=== PATIENT | female | born 1990 | race Hispanic/Latino ===

== ENCOUNTER 2017-07-30 16:44 | Emergency (ER) | payer BC ==
[2017-07-30 17:00] VITALS: BP 133/87; PULSE 78; RESP 16; TEMP 98; O2SAT 99
[2017-07-30] MEDS ORDERED: Sodium Chloride 0.9% 1,000 ML IV STA (17:23)
--- NOTE | 2017-07-30 17:57 | ED PDOC ---
HPI: Abdomen Time Seen by Provider: 07/30/17 17:22 Chief Complaint (Nursing): Abdominal Pain Chief Complaint (Provider): abdominal pain History Per: Patient History/Exam Limitations: no limitations Additional Complaint(s): 26yo F in Ed for eval of abd pain/dizziness/difficulty with concentration x1 day up[on waking up this AM-states that she noted tingling sensation to her hand snad feet-feels she be dehydrated but unable to keep anything down. admits to pain to the left lower abd an flank area without hematuira, dysuria or vaginal d/c. admits to hx of abdominal pain and blanca been seen by a GI for further evaluation,. pmhs : asthma, fibromyglaia . Abnormal Vaginal Bleeding: No Past Medical History Vital Signs: Last Vital Signs Temp 98 F 07/30/17 16:56 Pulse 78 07/30/17 16:56 Resp 16 07/30/17 16:56 BP 133/87 07/30/17 16:56 Pulse Ox 99 07/30/17 17:57 - Medical History PMH: Asthma, Fibromyalgia, Seizures - Allergies Allergies/Adverse Reactions: Allergies Allergy/AdvReac Type Severity Reaction Status Date / Time cephalexin [From Keflex] Allergy RASH Verified 07/30/17 16:54 dicyclomine [From Bentyl] Allergy ANAPHYLAXIS Verified 07/30/17 16:54 - Laboratory Results Result Diagrams: 07/30/17 17:58 07/30/17 17:58 - ECG O2 Sat by Pulse Oximetry: 99 Medical Decision Making Medical Decision Making: CT scan: IMPRESSION: Moderate amount of fluid in the pelvis suggesting recent cyst rupture; no renal or ureteral stones or hydronephrosis; possible fatty liver; nonvisualization of the appendix, but no pericecal inflammatory change Additional findings as described above. Thank you for allowing us to participate in the care of your patient. Dictated and Authenticated by: Glo Mendez MD 07/30/2017 8:03 PM Eastern Time ([place] & [place]) Pt will get US trans/pelvis. Disposition - Disposition Condition: STABLE Forms: [employer] (Lithuanian)
[2017-07-30 18:05] LABS: BASO % 0.7 % (0.0-2.0); EOS # 0.1 K/uL (0.0-0.7); EOS % 2.2 % (0.0-4.0); LYMPH # 1.8 K/uL (1.0-4.3); LYMPH % 43.1 % (20.0-40.0); MEAN CELL VOLUME 97.3 fl (81.0-99.0); MEAN CORPUSCULAR HEMOGLOBIN 31.8 pg (27.0-31.0); MEAN CORPUSCULAR HGB CONC 32.6 g/dL (33.0-37.0); MONO # 0.2 K/uL (0.0-0.8); MONO % 5.5 % (0.0-10.0); NEUT # 2.1 K/uL (1.8-7.0); NEUT % 48.5 % (50.0-75.0); NRBC % 0.1 % (0.0-0.0); RED CELL DISTRIBUTION WIDTH 13.3 % (11.5-14.5); WHITE BLOOD COUNT 4.2 K/uL (4.8-10.8)
[2017-07-30 18:33] LABS: ALB/GLOB RATIO 1.4 (1.0-2.1); ALKALINE PHOSPHATASE 36 U/L (38-126); ALT/SGPT 32 U/L (9-52); AST/SGOT 25 U/L (14-36); BILIRUBIN,TOTAL 0.6 mg/dl (0.2-1.3); BLOOD UREA NITROGEN 8 mg/dl (7-17); CALCIUM 8.8 mg/dL (8.4-10.2); CARBON DIOXIDE 27 mmol/L (22-30); CHLORIDE 106 mmol/L (98-107); GFR AFRICAN-AMERICAN > 60; GLUCOSE,RANDOM 76 mg/dL (65-105); POTASSIUM 4.3 MMOL/L (3.6-5.0); SODIUM 140 mmol/l (132-148); TOTAL PROTEIN 6.9 G/DL (6.3-8.2)
[2017-07-30 18:45] LABS: RBC URINE 2 /hpf (0-3); URINE BILIRUBIN NEGATIVE (NEGATIVE); URINE BLOOD NEGATIVE (NEGATIVE); URINE COLOR YELLOW (YELLOW); URINE GLUCOSE (UA) NEG (Normal); URINE KETONE TRACE mg/dL (NEGATIVE); URINE LEUKOCYTE ESTERASE NEG Leu/uL (Negative); URINE PROTEIN NEGATIVE (NEGATIVE); URINE UROBILINOGEN 0.2-1.0 mg/dL (0.2-1.0); WBC URINE 1 /hpf (0-5)
[2017-07-30] MEDS ORDERED: Iohexol 300 100 ML IJ ONE (18:55)
[2017-07-30] MEDS ORDERED: Sodium Chloride 0.9% 50 ML IV ONE (18:55)
[2017-07-30] MEDS ORDERED: Sodium Chloride 0.9% 500 ML IV STA (21:46)
--- NOTE | 2017-07-30 22:22 | ED PDOC ---
- Laboratory Results Result Diagrams: 07/30/17 17:58 07/30/17 17:58 - ECG O2 Sat by Pulse Oximetry: 99 - Progress ED Course And Treament: Case endorsed to science writer from [facility] pending labs, imaging, re-eval EXAM: US Pelvis Complete CLINICAL HISTORY: 26 years old, female; Pain; Pelvic pain; Additional info: Free fluid in pelvis with pain; LMP one to 2 years ago, irregular cycles TECHNIQUE: Real-time pelvic ultrasound (complete) with image documentation. COMPARISON: There are no prior studies for comparison. FINDINGS: Uterus: Uterus measures approximately 5.8 x 2.5 x 3.4 cm. Endometrium measures approximately 3 mm in width. Right ovary: Right ovary measures approximately 2.9 x 1.2 x 2.2 cm. There are multiple small follicles. There is intraovarian blood flow. Left ovary: Left ovary measures approximately 2.2 x 0.9 x 1.7 cm. There are multiple small follicles. There is intraovarian blood flow. Free fluid: Fluid in the cul-de-sac and both adnexa, right greater than left. IMPRESSION: Free fluid suggests recent cyst rupture, no torsion EXAM: US Pelvis, Transvaginal EXAM DATE/TIME: 07/30/2017 8:10 PM CLINICAL HISTORY: 26 years old, female; Pain; Pelvic pain; Additional info: Free fluid in pelvis with pain TECHNIQUE: Real-time transvaginal pelvic ultrasound (complete) with image documentation. Transvaginal imaging was used for better evaluation of the endometrium and adnexa. COMPARISON: CT - ABD PELVIS IV CONTRA 2017-07-30 19:10 FINDINGS: Uterus: Uterus measures approximately 4.6 x 2.3 x cm. Endometrium measures approximately 2.6 mm in width. Ovaries: Right ovary measures approximately 3 x 1.2 x 2.6 cm. Left ovary measures approximately 1.8 x 1 x 1.7 cm. There are multiple small follicles. There is intraovarian blood flow. Free fluid: There is moderately large amount of fluid in the cul-de-sac and adnexa. IMPRESSION: Moderately large amount of fluid in the cul-de-sac and adnexa suggest recent cyst rupture, no torsion On re-eval, patient resting comfortably. Patient educated on findings, discharged with instructions to follow up [facility] in 2 -3 days. Patient requesting refill on Flexeril for her Fibromyalgia. Return to ED for worsening/concerning symptoms. Disposition - Clinical Impression Clinical Impression: Abdominal pain, Ovarian cyst rupture - POA Present On Arrival: None - Disposition Referrals: Saleem Eddy DO [Staff Provider] - Disposition: Routine/Home Disposition Time: 22:21 Condition: IMPROVED Prescriptions: Cyclobenzaprine [Cyclobenzaprine HCl] 10 mg PO BID PRN #14 tab PRN Reason: Muscle Spasm Instructions: Ovarian Cyst (ED), Abdominal Pain (ED) Forms: [employer] (Kinyarwanda)
--- NOTE | 2017-07-31 09:06 | CT ---
PROCEDURE: CT Abdomen and Pelvis with contrast HISTORY: left flank pain COMPARISON: None. TECHNIQUE: Contrast dose: Radiation dose: Total exam DLP = mGy-cm. This CT exam was performed using one or more of the following dose reduction techniques: Automated exposure control, adjustment of the mA and/or kV according to patient size, and/or use of iterative reconstruction technique. FINDINGS: LOWER THORAX: Unremarkable. LIVER: Mild periportal edema without mass or biliary dilatation. GALLBLADDER AND BILE DUCTS: Unremarkable. PANCREAS: Unremarkable. No gross lesion or ductal dilatation. SPLEEN: Unremarkable. ADRENALS: Unremarkable. No mass. KIDNEYS AND URETERS: Unremarkable. No hydronephrosis. No solid mass. VASCULATURE: Unremarkable. No aortic aneurysm. BOWEL: Unremarkable. No obstruction. No gross mural thickening. APPENDIX: Normal appendix. PERITONEUM: Unremarkable. No free fluid. No free air. LYMPH NODES: Unremarkable. No enlarged lymph nodes. BLADDER: Unremarkable. REPRODUCTIVE: Unremarkable. BONES: No acute fracture. OTHER FINDINGS: Moderate amount of free fluid in the pelvis possibly representing recent ovarian cyst rupture. IMPRESSION: Moderate amount of free fluid in the pelvis possibly representing recent ovarian cyst rupture.Mild periportal edema without mass or biliary dilatation. Correlate with liver function studies.
--- NOTE | 2017-07-31 10:20 | US ---
PROCEDURE: HISTORY: free fluid in pelvis with pain COMPARISON: None TECHNIQUE: FINDINGS: The uterus measures 5.8 x 2.5 x 3.4 centimeters. The endometrium measures 3 millimeters. The right ovary measures 2.9 x 2.2 centimeters. The left ovary measures 2.2 x 1.7 centimeters. There is free fluid in the pelvis. IMPRESSION: Free fluid in the pelvis possibly related to recent ovarian cyst rupture.
== END 2017-07-30 22:31 | disposition home or self-care (01) ==
LOC: H.ER 16:44
DX: R10.32 Left lower quadrant pain (principal); N83.209 Unspecified ovarian cyst, unspecified side; J45.909 Unspecified asthma, uncomplicated
CPT/HCPCS: 74177; 76830; 76856; 80053; 81003; 81025; 82948; 83735; 85025; 87804; 96374; 96375; 99284; J1885; J2405; J7040; Q9967

== ENCOUNTER 2017-08-03 16:43 | Emergency (ER) | payer BC ==
[2017-08-03 17:09] VITALS: BP 129/84; PULSE 95; RESP 20; TEMP 98.2; O2SAT 98
[2017-08-03] MEDS ORDERED: Sodium Chloride 0.9% 1,000 ML IV STA (17:50)
[2017-08-03 18:21] LABS: BASO % 0.8 % (0.0-2.0); EOS # 0.1 K/uL (0.0-0.7); HEMATOCRIT 43.2 % (34.0-47.0); LYMPH # 1.6 K/uL (1.0-4.3); LYMPH % 37.2 % (20.0-40.0); MEAN CORPUSCULAR HEMOGLOBIN 31.8 pg (27.0-31.0); MEAN CORPUSCULAR HGB CONC 32.7 g/dL (33.0-37.0); MEAN PLATELET VOLUME 7.3 fl (7.2-11.7); MONO # 0.2 K/uL (0.0-0.8); MONO % 5.6 % (0.0-10.0); NEUT # 2.4 K/uL (1.8-7.0); NEUT % 54.4 % (50.0-75.0); NRBC % 0.1 % (0.0-0.0); RED CELL DISTRIBUTION WIDTH 13.1 % (11.5-14.5); WHITE BLOOD COUNT 4.3 K/uL (4.8-10.8)
[2017-08-03 18:33] LABS: ALB/GLOB RATIO 1.4 (1.0-2.1); ALKALINE PHOSPHATASE 45 U/L (38-126); ALT/SGPT 31 U/L (9-52); AST/SGOT 25 U/L (14-36); BILIRUBIN,TOTAL 0.9 mg/dl (0.2-1.3); BLOOD UREA NITROGEN 11 mg/dl (7-17); CALCIUM 9.4 mg/dL (8.4-10.2); CARBON DIOXIDE 27 mmol/L (22-30); CHLORIDE 103 mmol/L (98-107); GFR AFRICAN-AMERICAN > 60; GLUCOSE,RANDOM 71 mg/dL (65-105); LIPASE 59 U/L (23-300); POTASSIUM 4.8 MMOL/L (3.6-5.0); SODIUM 141 mmol/l (132-148); TOTAL PROTEIN 8.1 G/DL (6.3-8.2)
[2017-08-03] MEDS ORDERED: Iohexol 240 (50 ml) PO ONE (18:43)
--- NOTE | 2017-08-03 18:45 | ED PDOC ---
HPI: Abdomen Time Seen by Provider: 08/03/17 17:34 Chief Complaint (Nursing): Abdominal Pain Chief Complaint (Provider): Abdominal Pain History Per: Patient History/Exam Limitations: no limitations Onset/Duration Of Symptoms: Days (x2 days) Current Symptoms Are (Timing): Still Present Additional Complaint(s): 26 y/o female with past medical history of IBS and fibromyalgia presents to the ED complaining of abdominal pain since last night. Pain is constant and is in the umbilical region radiating to left lower quadrant. She notes excessive nausea and burping and is unable able to eat due to nausea. Patient was in the ED 4 days ago for similar reasons. Patient didnt take anything for pain and will be seeing cae engineer for endoscopy. Denies fever or any further medical complaints. Past Medical History Reviewed: Historical Data, Nursing Documentation, Vital Signs Vital Signs: Last Vital Signs Temp 98.2 F 08/03/17 17:05 Pulse 95 H 08/03/17 17:05 Resp 20 08/03/17 17:05 BP 129/84 08/03/17 17:05 Pulse Ox 98 08/03/17 17:05 - Medical History PMH: Asthma, Fibromyalgia, Seizures - Surgical History Surgical History: No Surg Hx - Family History Family History: States: Unknown Family Hx - Social History Current smoker - smoking cessation education provided: No Alcohol: None Drugs: Other (Marijuana) - Home Medications Home Medications: Ambulatory Orders Medication Instructions Recorded Cyclobenzaprine [Cyclobenzaprine 10 mg PO BID PRN #14 tab 07/30/17 HCl] - Allergies Allergies/Adverse Reactions: Allergies Allergy/AdvReac Type Severity Reaction Status Date / Time cephalexin [From Keflex] Allergy RASH Verified 07/30/17 16:54 dicyclomine [From Bentyl] Allergy ANAPHYLAXIS Verified 07/30/17 16:54 Review of Systems ROS Statement: Except As Marked, All Systems Reviewed And Found Negative (As per HPI, otherwise negative) Constitutional: Negative for: Fever Gastrointestinal: Positive for: Nausea, Abdominal Pain Physical Exam - Reviewed Nursing Documentation Reviewed: Yes Vital Signs Reviewed: Yes - Physical Exam Appears: Positive for: Non-toxic, No Acute Distress Head Exam: Positive for: ATRAUMATIC, NORMOCEPHALIC Skin: Positive for: Normal Color, Warm, Dry Eye Exam: Positive for: EOMI, Normal appearance, PERRL Neck: Positive for: Normal, Painless ROM, Supple Cardiovascular/Chest: Positive for: Regular Rate, Rhythm. Negative for: Murmur Respiratory: Positive for: Normal Breath Sounds. Negative for: Respiratory Distress Gastrointestinal/Abdominal: Positive for: Normal Exam, Soft (soft but diffused tenderness). Negative for: Tenderness Back: Positive for: Normal Inspection. Negative for: L CVA Tenderness, R CVA Tenderness, Vertebral Tenderness Extremity: Positive for: Normal ROM. Negative for: Pedal Edema, Deformity Neurologic/Psych: Positive for: Alert, Oriented (x3) - Laboratory Results Result Diagrams: 08/03/17 18:13 08/03/17 18:13 - ECG O2 Sat by Pulse Oximetry: 98 (RA) Pulse Ox Interpretation: Normal Medical Decision Making Medical Decision Making: Time: 18:43 Plan: CT Abdomen/Pelvis Urine dipstick Ppcid 20mg PO Iohexol 50ml PO Toradol 15mg IVP Reglan 10mg IVP Sodium chloride 1L, IV IV insertion Reevaluation Scribe Attestation: Documented by Nabil Dobosn acting as a scribe for Jesenia Nunes MD. Scribe Attestation: All medical record entries made by the Scribe were at my direction and personally dictated by me. I have reviewed the chart and agree that the record accurately reflects my personal performance of the history, physical exam, medical decision making, and the department Disposition - Disposition
[2017-08-03] MEDS ORDERED: Iohexol 240 (50 ml) ONE (18:46)
--- NOTE | 2017-08-03 19:39 | ED PDOC ---
- Laboratory Results Result Diagrams: 08/03/17 18:13 08/03/17 18:13 - ECG O2 Sat by Pulse Oximetry: 98 (RA) Medical Decision Making Medical Decision Making: Time: 19:00 Patient is signed over to me by Dr. Nunes pending CT and reevaluation. 1030PM: COMPARISON: CT - ABD PELVIS IV CONTRA 2017-07-30 19:10 FINDINGS: Lower thorax: <No significant pleural effusions.> ABDOMEN: Liver: Unremarkable. No mass. Gallbladder and bile ducts: Unremarkable. No calcified stones. No ductal dilation. Pancreas: Unremarkable. No ductal dilation. Spleen: Unremarkable. No splenomegaly. Adrenals: Left adrenal thickening. Kidneys and ureters: Mild to moderate right hydronephrosis. Stomach and bowel: Unremarkable. No dilated bowel loops. Appendix: No findings to suggest acute appendicitis. PELVIS: Bladder: Contracted, limits evaluation. Reproductive: Unremarkable as visualized. CHERYL BAL | Preliminary Radiology Report OPEN DEVELOPER OPERATOR (QA) DISCREPANCY? If there is a discrepancy between the preliminary and final interpretation, please notify [employer] via [email or web address]. If you do not have access to our QA portal, call our QA team at [phone] CONFIDENTIALITY STATEMENT This report is intended only for the use of the referring physician, and only in accordance with law, If you received this in error, call [phone] Page 2 of 2 ABDOMEN and PELVIS: Intraperitoneal space: Unremarkable. No free air. No drainable fluid collection. Bones/joints: No acute fracture. No dislocation. Soft tissues: Unremarkable. Vasculature: Unremarkable. No abdominal aortic aneurysm. Lymph nodes: Unremarkable. No enlarged lymph nodes. IMPRESSION: Mild to moderate right hydronephrosis. No findings to suggest acute appendicitis. Saw patient at bedside, states that morphine helped temporarily and asking for another dose. Pt. staes she has tried flexeril, carafate, PPI, zantac, simethicone as well as other stomache medications but they "make the pain worse ". Patient asking for stronger medications but I explained that opiates/ narcotics will slow down her GI tract. Explained dangers of opiate addiction, patient understands this and relates that she had a friend who suffered from a fatal drug overdose. Will give one more dose of morphine in ER, no opiate prescriptions will be prescribed at this time. Pt. states she has a GI appointment in 2 days but cannot recall the name of the physician. Will d/c home. Return precautions discussed. Scribe Attestation: Documented by Nabil Dobson acting as a scribe for Jah Staples MD. Scribe Attestation: All medical record entries made by the Scribe were at my direction and personally dictated by me. I have reviewed the chart and agree that the record accurately reflects my personal performance of the history, physical exam, medical decision making, and the department course for this patient. I have also personally directed, reviewed, and agree with the discharge instructions and disposition. Disposition - Clinical Impression Clinical Impression: Abdominal pain - POA Present On Arrival: None - Disposition Referrals: Omkar Vidales [Outside] Disposition: Routine/Home Disposition Time: 22:30 Condition: STABLE Instructions: Acute Abdominal Pain (ED), Gas and Bloating (ED) Forms: [employer] (Surinamese)
[2017-08-03] MEDS ORDERED: Morphine 4 MG/ML VIAL IVP STA (20:29)
[2017-08-03] MEDS ORDERED: Morphine 4 MG/ML VIAL ONE ×2 (20:33→22:50)
[2017-08-03] MEDS ORDERED: Sodium Chloride 0.9% 50 ML IV ONE (21:06)
[2017-08-03] MEDS ORDERED: Iohexol 300 100 ML IJ ONE (21:06)
[2017-08-03] MEDS ORDERED: Morphine 4 MG/ML VIAL IVP ONE (22:46)
--- NOTE | 2017-08-04 09:20 | CT ---
PROCEDURE: CT Abdomen and Pelvis with contrast HISTORY: abdominal pain COMPARISON: 07/30/2017 CT abdomen and pelvis. 07/30/2017 pelvic ultrasound Summary of findings on the comparison examination: Free fluid in the pelvis possibly related to recent ovarian cyst rupture TECHNIQUE: Contrast dose: 80 cc Omnipaque 300 Radiation dose: Total exam DLP = 178.75 mGy-cm. This CT exam was performed using one or more of the following dose reduction techniques: Automated exposure control, adjustment of the mA and/or kV according to patient size, and/or use of iterative reconstruction technique. FINDINGS: LOWER THORAX: Unremarkable. LIVER: Unremarkable. No gross lesion or ductal dilatation. GALLBLADDER AND BILE DUCTS: Unremarkable. PANCREAS: Unremarkable. No gross lesion or ductal dilatation. SPLEEN: Unremarkable. ADRENALS: Unremarkable. No mass. KIDNEYS AND URETERS: Unremarkable. No hydronephrosis. No solid mass. VASCULATURE: Unremarkable. No aortic aneurysm. BOWEL: Unremarkable. No obstruction. No gross mural thickening. APPENDIX: Normal appendix. PERITONEUM: Interval decrease in the amount of free fluid in the pelvis/cul-de-sac compared prior studies. Otherwise no interval change. No acute findings related to/accounting for the clinical presentation. Concordant results (preliminary interpretation) provided by [facility]. Procedure Completed: :30 Preliminary ([facility]) Report: Dictated and Authenticated: 22:00 Final Interpretation: 09:18 LYMPH NODES: Unremarkable. No enlarged lymph nodes. BLADDER: Unremarkable. REPRODUCTIVE: Unremarkable. BONES: No acute fracture. OTHER FINDINGS: None. IMPRESSION: Interval decrease in the amount of free fluid in the pelvis/cul-de-sac compared prior studies. Otherwise no interval change. No acute findings related to/accounting for the clinical presentation. Concordant results (preliminary interpretation) provided by [facility]. Procedure Completed: 21:30 Preliminary ([facility]) Report: Dictated and Authenticated: 22:00 Final Interpretation: 09:18
== END 2017-08-03 23:29 | disposition home or self-care (01) ==
LOC: H.ER 16:43
DX: R10.9 Unspecified abdominal pain (principal); M79.7 Fibromyalgia; J45.909 Unspecified asthma, uncomplicated; F11.20 Opioid dependence, uncomplicated
CPT/HCPCS: 74177; 80053; 81025; 83690; 85025; 96361; 96374; 96375; 96376; 99283; J1885; J2270; J2405; J7040; Q9966; Q9967

== ENCOUNTER 2017-08-12 20:12 | Emergency (ER) | payer BC ==
[2017-08-12 20:27] VITALS: PULSE 93; TEMP 97.5
[2017-08-12] MEDS ORDERED: DiphenhydrAMINE 50 mg/ml Inj IVP STA (21:20)
[2017-08-12] MEDS ORDERED: Promethazine 25 MG in Sodium Chloride 0.9% 50 ML IVPB ONE (21:35)
[2017-08-12] MEDS ORDERED: DiphenhydrAMINE 50 mg/ml Inj ONE (21:36)
[2017-08-12 22:08] LABS: BASO % 0.8 % (0.0-2.0); EOS # 0.1 K/uL (0.0-0.7); EOS % 1.4 % (0.0-4.0); HEMATOCRIT 43.7 % (34.0-47.0); LYMPH % 42.9 % (20.0-40.0); MEAN CELL VOLUME 96.2 fl (81.0-99.0); MEAN CORPUSCULAR HEMOGLOBIN 32.2 pg (27.0-31.0); MEAN CORPUSCULAR HGB CONC 33.5 g/dL (33.0-37.0); MEAN PLATELET VOLUME 7.9 fl (7.2-11.7); MONO # 0.3 K/uL (0.0-0.8); MONO % 5.6 % (0.0-10.0); NEUT # 2.3 K/uL (1.8-7.0); NEUT % 49.3 % (50.0-75.0); NRBC % 0.1 % (0.0-0.0); RED CELL DISTRIBUTION WIDTH 12.6 % (11.5-14.5); WHITE BLOOD COUNT 4.6 K/uL (4.8-10.8)
[2017-08-12 22:58] LABS: ALB/GLOB RATIO 1.5 (1.0-2.1); ALKALINE PHOSPHATASE 44 U/L (38-126); ALT/SGPT 28 U/L (9-52); AST/SGOT 34 U/L (14-36); BILIRUBIN,TOTAL 0.8 mg/dl (0.2-1.3); BLOOD UREA NITROGEN 10 mg/dl (7-17); CALCIUM 9.3 mg/dL (8.4-10.2); CARBON DIOXIDE 23 mmol/L (22-30); CHLORIDE 105 mmol/L (98-107); GFR AFRICAN-AMERICAN > 60; GLUCOSE,RANDOM 64 mg/dL (65-105); POTASSIUM 3.9 MMOL/L (3.6-5.0); SODIUM 136 mmol/l (132-148); TOTAL PROTEIN 7.9 G/DL (6.3-8.2)
[2017-08-12] MEDS ORDERED: Morphine 4 MG/ML VIAL ONE (23:08)
[2017-08-12] MEDS ORDERED: Morphine 4 MG/ML VIAL IV STA (23:15)
[2017-08-13] MEDS ORDERED: Morphine 4 MG/ML VIAL ONE (00:33)
--- NOTE | 2017-08-13 01:49 | ED PDOC ---
HPI: Abdomen Time Seen by Provider: 08/12/17 20:36 Chief Complaint (Nursing): Abdominal Pain Chief Complaint (Provider): Abdominal pain, nausea History Per: Patient History/Exam Limitations: no limitations Onset/Duration Of Symptoms: Days Additional Complaint(s): Pt has chronic intermittent abdominal pain and nause. Pt seen in ER twice and has appointment with GI next week. Denies fever/chills. States this is the same pain as she has had in the past. Past Medical History Reviewed: Historical Data, Nursing Documentation, Vital Signs Vital Signs: Last Vital Signs Temp 97.5 F L 08/12/17 20:24 Pulse 93 H 08/12/17 20:24 Resp 16 08/12/17 20:24 BP 128/95 H 08/12/17 20:24 Pulse Ox 100 08/12/17 20:24 - Medical History PMH: Asthma, Fibromyalgia, Seizures - Surgical History Surgical History: No Surg Hx - Family History Family History: States: Unknown Family Hx - Living Arrangements Living Arrangements: With Family - Social History Current smoker - smoking cessation education provided: No - Home Medications Home Medications: Ambulatory Orders Medication Instructions Recorded Cyclobenzaprine [Cyclobenzaprine 10 mg PO BID PRN #14 tab 07/30/17 HCl] - Allergies Allergies/Adverse Reactions: Allergies Allergy/AdvReac Type Severity Reaction Status Date / Time cephalexin [From Keflex] Allergy RASH Verified 08/12/17 20:23 dicyclomine [From Bentyl] Allergy ANAPHYLAXIS Verified 08/12/17 20:23 clonazepam [From Klonopin] AdvReac DIZZINESS Verified 08/12/17 20:24 lactose AdvReac VOMITING Verified 08/12/17 20:24 lorazepam [From Ativan] AdvReac DIZZINESS Verified 08/12/17 20:24 Review of Systems ROS Statement: Except As Marked, All Systems Reviewed And Found Negative Constitutional: Negative for: Fever, Chills Gastrointestinal: Positive for: Nausea, Vomiting, Abdominal Pain Physical Exam - Reviewed Nursing Documentation Reviewed: Yes Vital Signs Reviewed: Yes - Physical Exam Appears: Positive for: Well, Non-toxic, No Acute Distress Head Exam: Positive for: ATRAUMATIC, NORMAL INSPECTION, NORMOCEPHALIC Skin: Positive for: Normal Color, Warm, DRY Eye Exam: Positive for: Normal appearance ENT: Positive for: Normal ENT Inspection Neck: Positive for: Normal, Painless ROM Cardiovascular/Chest: Positive for: Regular Rate, Rhythm Respiratory: Positive for: CNT, Normal Breath Sounds Gastrointestinal/Abdominal: Positive for: Bowel Sounds, Soft, Tenderness ( Diffuse tenderness ). Negative for: Normal Exam Back: Positive for: Normal Inspection Extremity: Positive for: Normal ROM Neurologic/Psych: Positive for: Alert, Oriented - Laboratory Results Result Diagrams: 08/12/17 21:55 08/12/17 21:55 - ECG O2 Sat by Pulse Oximetry: 100 Medical Decision Making Medical Decision Making: Morphine 4mg IV given twice in ER for pain. Case discussed with Dr. Knox. Disposition - Clinical Impression Clinical Impression: Abdominal pain - Patient ED Disposition Is Patient to be Admitted: No Counseled Patient/Family Regarding: Diagnosis, Need For Followup, Rx Given - Disposition Disposition: Routine/Home Disposition Time: 01:46 Condition: GOOD Instructions: Abdominal Pain (ED)
[2017-08-13 02:25] VITALS: BP 125/81; RESP 17; O2SAT 98
== END 2017-08-13 04:27 | disposition home or self-care (01) ==
LOC: H.ER 20:12
DX: R10.9 Unspecified abdominal pain (principal); R11.0 Nausea; M79.7 Fibromyalgia
CPT/HCPCS: 80053; 81025; 85025; 96361; 96365; 96375; 96376; 99283; J1200; J2270; J2405; J2550